=== PATIENT | female | born 1965 | race African-American/Black ===

== ENCOUNTER 2024-09-11 15:25 | Outpatient (CLI) | payer OTHER ==
[~2024-09-11 15:25] MED LIST: Magnevist 469MG/ML 20 ML VIAL ONE
== END 2024-09-11 15:26 | disposition home or self-care (01) ==
LOC: CSHMRI 15:25
PROVIDERS: ATTEND Family Medicine
DX: M25.462 Effusion, left knee (principal); M25.362 Other instability, left knee; R22.42 Localized swelling, mass and lump, left lower limb
CPT/HCPCS: 36415; 82565